=== PATIENT | male | born 1950 | race Caucasian/White ===

== ENCOUNTER 2023-06-12 08:38 | Emergency (ER) | payer MEDICARE, OTHER, SELFPAY ==
[2023-06-12 08:50] VITALS: BP 169/83; PULSE 71; RESP 16; TEMP 36.4; O2SAT 95; BMI 34.5
--- NOTE | 2023-06-12 08:59 | DI.CT.S_ITS ---
PROCEDURE: CT HEAD/BRAIN WO CON INDICATIONS: double vision TECHNIQUE: Noncontrast 4.5 mm thick angled axial sections acquired from the foramen magnum to the vertex, with coronal and sagittal reformats. For radiation dose reduction, the following was used: automated exposure control, adjustment of mA and/or kV according to patient size. COMPARISON: None. FINDINGS: Image quality: Excellent. CSF spaces: Basal cisterns are patent. No extra-axial fluid collections. The ventricles are symmetric in size and shape. Brain: No intracranial bleeds or masses. There is cerebral volume loss for age, with resultant ventricular and sulcal prominence. There are periventricular and deep white matter chronic small vessel ischemic changes. There is intracranial internal carotid artery atherosclerosis. Skull and face: Calvarium and visualized facial bones appear intact, without suspicious lesions. Sinuses: Visualized sinuses and mastoids are clear. IMPRESSION: No acute intracranial pathology. Dictated by: Lm Griffin M.D. on 06/12/2023 at 9:24 Approved by: Lm Griffin M.D. on 06/12/2023 at 9:25
--- NOTE | 2023-06-12 09:04 | PC.NURSE ---
Denies dizziness or nausea. No change in double vision upon waking this morning. Ambulating with a steady gait.
--- NOTE | 2023-06-12 09:19 | ED_ITS ---
HPI - Neuro Symptoms/Deficit General Chief Complaint: Neuro Symptoms/Deficit Stated Complaint: vision problems Time Seen by Provider: 06/12/23 09:01 Source: patient Mode of arrival: Ambulatory Limitations: no limitations History of Present Illness HPI Narrative: Patient is a 73-year-old male who is here for evaluation of double vision. He states that the symptoms started last evening. He states that he did share an edible with his last evening and shortly after this is when the double vision started. He denies headaches. Denies any other numbness or tingling in his face or his upper or lower extremities. He states that about 1 month ago there was a short period of time where the right side of his face? went ? but this completely resolved. He did not come in until this morning because he wanted to see if the symptoms resolved on their own. He is no pain in his eye. He does wear corrective lenses. No history of eye surgeries or glaucoma. He states when he closes each eye independently the double vision resolves. On Anticoagulants: No Review of Systems Review of Systems ROS Unobtainable: All systems reviewed & are unremarkable except as noted in HPI and below Constitutional Constitutional: Reports system reviewed and no additional complaints, except as documented Eyes Eyes: Reports system reviewed and no additional complaints, except as documented ENT Ears, Nose, Mouth, and Throat: Reports system reviewed and no additional complaints, except as documented Hematologic/Lymphatic On Anticoagulants: No Exam Initial Vital Signs Initial Vital Signs: Vital Signs Temperature 97.6 F 06/12/23 08:50 Pulse Rate 71 06/12/23 08:50 Respiratory Rate 16 06/12/23 08:50 Blood Pressure 169/83 H 06/12/23 08:50 Pulse Oximetry 95 06/12/23 08:50 Oxygen Delivery Method Room Air 06/12/23 08:50 Const General: cooperative, comfortable and No ill appearing [facility] Head: normal to inspection and normocephalic Nose: external nose normal Face and sinus: normal facial exam Mouth: oral mucosae normal Eyes Periorbital: periorbital findings normal Eyelids: eyelids normal Conjunctivae: conjunctivae normal Pupils: PERRL EOM: EOM intact bilaterally Other: Patient does seem to have a nasal deviation of the left eye compared to the right. Resp Effort & Inspection: normal respiratory effort Cardio Rate: regular rate and bradycardic Skin General: no rashes or lesions noted Neuro General: patient alert, patient awake, patient oriented x3 and moves all extremities Cognition: normal cognition Speech: speech normal Other: Cranial nerves intact except for what appears to be nasal deviation of the left eye Extrem General: normal to inspection and capillary refill normal Course Orders Ordered: ED Orders 06/12/23 08:59 CT head/brain wo con Stat 06/12/23 09:37 MR stroke Stat Vital Signs Vital signs: Vital Signs - 8 hr 06/12/23 08:50 06/12/23 10:55 Temperature 97.6 F Pulse Rate 71 68 Respiratory Rate 16 16 Blood Pressure 169/83 H 169/81 H Pulse Oximetry 95 100 Oxygen Delivery Method Room Air Room Air MDM - Neuro Symptoms/Deficit Imaging Data CT scan - head: Radiologist's Impression: PROCEDURE:? CT HEAD/BRAIN WO CON ? INDICATIONS:? double vision ? TECHNIQUE:? Noncontrast 4.5 mm thick angled axial sections acquired from the foramen magnum to the vertex, with coronal and sagittal reformats.? For radiation dose reduction, the following was used:? automated exposure control, adjustment of mA and/or kV according to patient size.? ? COMPARISON:? None. ? FINDINGS:? Image quality:? Excellent.? ? CSF spaces:? Basal cisterns are patent.? No extra-axial fluid collections.? The ventricles are symmetric in size and shape.? ? Brain:? No intracranial bleeds or masses.? There is cerebral volume loss for ag e, with resultant ventricular and sulcal prominence.? There are periventricular and deep white matter chronic small vessel ischemic changes.? There is intracranial internal carotid artery atherosclerosis.? ? Skull and face:? Calvarium and visualized facial bones appear intact, without suspicious lesions.? ? Sinuses:? Visualized sinuses and mastoids are clear.? ? IMPRESSION:? No acute intracranial pathology.? brain MRI: Radiologist's Impression: PROCEDURE:? MR STROKE Pre- and post-contrast brain MRI, non-contrast brain MR angiogram, pre- and postcontrast neck MR angiogram ? INDICATIONS:? Left 6th cranial nerve palsy ? TECHNIQUE:? Brain:? Noncontrast axial T1 spin echo, axial T2 fast spin echo, sagittal and axial FLAIR, coronal T2 fast spin echo, axial gradient echo, axial diffusion and ADC through the brain.? After the administration of contrast, axial 3D VIBE of the cranial vasculature and brain.? Brain MRA:? Non-contrast 3-D time of flight MR angiogram, with multiple kfvkbdy-pkevqexyl-dimqxabihb (MIP) reformats performed.? Neck MRA:? Axial and sagittal TruFISP through the neck.? Coronal dynamic MR angiogram during administration of contrast in the arterial and venous phases, with 3- dimenstional ihibqdh-fvfybtqsi-stpmmsbylk (MIP) reformats constructed from subtraction images.? ? COMPARISON:? None. ? FINDINGS:? Image quality:? Excellent.? ? BRAIN:? CSF spaces:? Ventricles are normal in size and shape.? Basal cisterns are patent.? No extra-axial fluid collections.? Brain:? No intracranial bleeds or mass effects.? Rollins-white matter interface is normal.? Diffusion weighted images show no acute ischemic insults.? Brainstem appears normal.? Normal intravascular flow voids are present.? No abnormal intracranial enhancement.? Skull and face:? Calvarial marrow signal is normal.? Orbits appear normal.? Sinuses:? Sinuses and mastoids are clear.? ? BRAIN MR ANGIOGRAM:? Anterior circulation:? Intracranial internal carotid arteries are normal in size and enhancement.? The flow within the paired anterior cerebral arteries is normal and symmetric.? The flow within the middle cerebral arteries is normal and symmet martin.? The anterior communicating artery is seen.? No stenoses, occlusions, or aneurysms.? Posterior circulation:? The visualized portions of the vertebral arteries demonstrate normal caliber, and join to form a normal appearing basilar artery.? The flow within the posterior cerebral arteries is normal and symmetric.? No stenoses, occlusions, or aneurysms.? ? NECK MR ANGIOGRAM:? Carotids:? Great vessels demonstrate a conventional anatomy as they arise from the aortic arch.? The origins of the common carotid arteries appear patent.? The calibers and courses of both common carotid arteries are normal.? The bifurcation regions appear normal bilaterally.? The internal carotid arteries demonstrate normal course and caliber. ? Posterior circulation:? The origins of the vertebral arteries appear patent.? More superior portions of both vertebral arteries demonstrate normal course and caliber, and join to form a normal appearing basilar artery.? Miscellaneous:? Subclavian arteries appear patent.? Pre-contrast images through the neck show no soft tissue abnormalities.? ? IMPRESSION:? ? BRAIN MRI:? No acute abnormality. ? BRAIN MR ANGIOGRAM:? No large vessel occlusion. ? NECK MR ANGIOGRAM:? No large vessel occlusion. MDM Narrative Medical decision making narrative: Head CT and brain MRI showed no acute pathology. He does have a left 6th nerve palsy causing his diplopia. Will discharge patient home with follow-up with instructions to contact Ophthalmology for follow-up. He was given return precautions. He expressed understanding and agreement. He is no rash on the left side of his face concerning for zoster. Discharge Plan Departure Patient Disposition: Home Clinical Impression: Sixth cranial nerve palsy, Diplopia Instructions: DI for Double Vision Activity Restrictions/Additional Instructions: I do recommend you contact the line camera operator of the number provided below tomorrow for follow-up. If they can not get you in for follow-up before you return home then contact your national insurance officer at home for follow-up. Return to the emergency department for new or worsening symptoms. Referrals: Bairon Tripathi MD [Physician] - Stand Alone Forms: Patient Portal/API
--- NOTE | 2023-06-12 09:37 | DI.MRI.S_ITS ---
PROCEDURE: MR STROKE Pre- and post-contrast brain MRI, non-contrast brain MR angiogram, pre- and postcontrast neck MR angiogram INDICATIONS: Left 6th cranial nerve palsy TECHNIQUE: Brain: Noncontrast axial T1 spin echo, axial T2 fast spin echo, sagittal and axial FLAIR, coronal T2 fast spin echo, axial gradient echo, axial diffusion and ADC through the brain. After the administration of contrast, axial 3D VIBE of the cranial vasculature and brain. Brain MRA: Non-contrast 3-D time of flight MR angiogram, with multiple ksqyrdk-saxpayzms-glbddwkwsj (MIP) reformats performed. Neck MRA: Axial and sagittal TruFISP through the neck. Coronal dynamic MR angiogram during administration of contrast in the arterial and venous phases, with 3-dimenstional ymycaxw-ymevlnrgl-xxzvgprszg (MIP) reformats constructed from subtraction images. COMPARISON: None. FINDINGS: Image quality: Excellent. BRAIN: CSF spaces: Ventricles are normal in size and shape. Basal cisterns are patent. No extra-axial fluid collections. Brain: No intracranial bleeds or mass effects. Rollins-white matter interface is normal. Diffusion weighted images show no acute ischemic insults. Brainstem appears normal. Normal intravascular flow voids are present. No abnormal intracranial enhancement. Skull and face: Calvarial marrow signal is normal. Orbits appear normal. Sinuses: Sinuses and mastoids are clear. BRAIN MR ANGIOGRAM: Anterior circulation: Intracranial internal carotid arteries are normal in size and enhancement. The flow within the paired anterior cerebral arteries is normal and symmetric. The flow within the middle cerebral arteries is normal and symmetric. The anterior communicating artery is seen. No stenoses, occlusions, or aneurysms. Posterior circulation: The visualized portions of the vertebral arteries demonstrate normal caliber, and join to form a normal appearing basilar artery. The flow within the posterior cerebral arteries is normal and symmetric. No stenoses, occlusions, or aneurysms. NECK MR ANGIOGRAM: Carotids: Great vessels demonstrate a conventional anatomy as they arise from the aortic arch. The origins of the common carotid arteries appear patent. The calibers and courses of both common carotid arteries are normal. The bifurcation regions appear normal bilaterally. The internal carotid arteries demonstrate normal course and caliber. Posterior circulation: The origins of the vertebral arteries appear patent. More superior portions of both vertebral arteries demonstrate normal course and caliber, and join to form a normal appearing basilar artery. Miscellaneous: Subclavian arteries appear patent. Pre-contrast images through the neck show no soft tissue abnormalities. IMPRESSION: BRAIN MRI: No acute abnormality. BRAIN MR ANGIOGRAM: No large vessel occlusion. NECK MR ANGIOGRAM: No large vessel occlusion. Dictated by: Lm Griffin M.D. on 06/12/2023 at 11:01 Approved by: Lm Griffin M.D. on 06/12/2023 at 11:06
[2023-06-12 10:55] VITALS: BP 169/81; PULSE 68; RESP 16; O2SAT 100
[2023-06-12 11:35] VITALS: BP 156/81; PULSE 65; RESP 16; TEMP 36.9; O2SAT 96
== END 2023-06-12 11:38 | disposition home or self-care (01) ==
PROVIDERS: Emergency Provider Emergency Medicine
DX: H49.20 Sixth [abducent] nerve palsy, unspecified eye (principal); H53.2 Diplopia
CPT/HCPCS: 70450; 70548; 70553; 99283; 99284